=== PATIENT | male | born 1970 | race Caucasian/White ===

== ENCOUNTER 2019-08-03 09:03 | Day surgery (SDC) | payer OTHER ==
[2019-08-02 10:28] VITALS: BMI 27.0
[2019-08-03] MEDS ORDERED: LIDOCAINE HCL 1%, 10 MG/ML (20ML VIAL) ONE (09:18)
[2019-08-03] MEDS ORDERED: BENZOIN TINCTURE SWABSTICK TP ONE (09:18)
--- NOTE | 2019-08-03 10:00 | HP ---
History & Physical Update - History History: No Change - Physical Physical: No Change - Assessment Assessment: No Change - Plan Plan: No Change (for open RIH repair w/mesh; r/b/t/a's d/w the patient in the office; see my office notes for details; informed consent obtained.)
[2019-08-03] MEDS ORDERED: fentaNYL CITRATE 250 MCG/5 ML VIAL ONE (10:10)
[2019-08-03] MEDS ORDERED: PROPOFOL 20 ML ONE (10:10)
[2019-08-03] MEDS ORDERED: MIDAZOLAM HCL 2 MG/2 ML SINGLE DOSE VIAL ONE ×2 (10:10)
[2019-08-03] MEDS ORDERED: BUPIVACAINE LIPOSOME/PF (EXPAREL) 266 MG/20 ML VIAL ONE (10:17)
[2019-08-03] MEDS ORDERED: BUPIVACAINE HCL/PF 0.5% (5 MG/ML) 30 ML VIAL IJ ONE (10:17)
[2019-08-03] MEDS ORDERED: BUPIVACAINE HCL/PF 0.25% (2.5MG/ML) 10 ML VIAL ONE (10:17)
[2019-08-03] MEDS ORDERED: ceFAZolin SODIUM 1 GM VIAL IVPB ONE (10:42)
--- NOTE | 2019-08-03 12:11 | OP ---
Operative Note - Note: Operative Date: 08/03/19 Pre-Operative Diagnosis: right inguinal herania Operation: repair right inguinal hernia w/mesh Findings: direct RIH Post-Operative Diagnosis: Same as Pre-op Surgeon: Jj Johnson Rn Field Case Manager: Rosa Rios Anesthesiologist/DRILL PRESS TENDER: Luis Santacruz Anesthesia: Spinal (TAP block) Specimens Removed: none Estimated Blood Loss (mls): 10
--- NOTE | 2019-08-03 12:17 | SURG ---
Surgery Crumb Packer Note Crumb Packer: Rosa Rios PA-C (Suzy) Date of Service: 08/03/19 Diagnosis: right inguinal hernia Procedure: Operation: repair right inguinal hernia w/mesh I was present for the entirety of the operative procedure. For further detail, please refer to operative report. Visit type - Case Type Case Type: Scheduled - Emergency Emergency Visit: No - New patient This patient is new to me today: Yes Date on this admission: 08/03/19 - Critical Care Critical Care patient: No
[2019-08-03 19:46] VITALS: BP 135/70; PULSE 82; TEMP 98
--- NOTE | 2019-08-21 18:14 | OP ---
DATE OF OPERATION: 08/03/2019 PREOPERATIVE DIAGNOSIS: Right inguinal hernia. POSTOPERATIVE DIAGNOSIS: Right inguinal hernia. PROCEDURE: Repair of right inguinal hernia with mesh. SURGEON: Jj Johnson MD STAMPING PRESS OPERATOR: Rosa iRos PA-C ANESTHESIA: Regional with TAP block. OPERATIVE FINDINGS: There was a direct right inguinal hernia. The rest of the findings were unremarkable. PROCEDURE: The patient was placed on the operating table in supine position after placement of regional anesthesia and a TAP block, and the right groin was prepped with ChloraPrep and draped in sterile fashion. A timeout was taken and a transverse right groin incision was made with a scalpel and taken down through skin and subcutaneous tissue and Prabha's fascia. The external oblique fascia was opened proximally and distally in the direction of its fibers and the cord structures and nerve elevated at the level of the pubic tubercle and a Daniela drain placed around them for retraction and identification purposes. No evidence of an indirect inguinal hernia was found, and there was a direct hernia. The hernia was repaired by fashioning a piece of Parietex ProGrip mesh into the inguinal canal and anchoring it at the pubic tubercle, shelving edge, and conjoined tendon respectively. A keyhole was created for the cord structures and nerve and the tails of the mesh brought above the level of the internal ring and anchored there with interrupted 2-0 Prolene. Hemostasis was checked for and noted to be good, and then the wound was copiously irrigated with sterile saline. The cord structures and nerve were returned to their normal anatomic position and the external oblique fascia closed over them using continuous 2-0 Vicryl, recreating the external ring. Hemostasis was verified again, and then Prabha's fascia reapproximated with interrupted 2-0 Vicryl, the deep dermis with interrupted 3-0 Vicryl, and the skin edges with 4-0 Monocryl in a subcuticular continuous fashion. Steri-Strips and dry sterile dressings were placed and the procedure terminated at this point and the patient transferred to the post- anesthesia care unit in stable condition, awake and alert. Estimated blood loss 10 mL. Replacement: Crystalloid. Drains: None. Specimens: None. I, Jj Johnson, was physically present in the operating room from the time the patient was placed on the operating room table until he was transferred to the post-anesthesia care unit in [place]. MD DANNY Herbert/[id number] MTDD
== END 2019-08-03 19:20 | disposition home or self-care (01) ==
LOC: JASU-SURG 09:03
PROVIDERS: ATTEND Surgery
PROC: 0YU50JZ Supplement Right Inguinal Region with Synthetic Substitute, Open Approach (ICD-10-PCS; principal; 2019-08-03 10:30)
DX: K40.90 Unilateral inguinal hernia, without obstruction or gangrene, not specified as recurrent (principal)
CPT/HCPCS: 94760